=== PATIENT | female | born 1935 | race Caucasian/White ===

== ENCOUNTER 2022-05-22 10:54 | Outpatient (CLI) | payer MEDICARE, BC ==
[2022-05-22] VITALS (14 sets, daily range): BP systolic 92–131; BP diastolic 52–91; PULSE 80–101; TEMP 98.1
[~2022-05-22] VITALS: Ht 157.6 cm; Wt 70.0 kg
[2022-05-22] MEDS ORDERED: CARDIZEM CD 30300 MG PO (11:27)
[2022-05-22] MEDS ORDERED: ELIQUIS 5MG PO (11:28)
[2022-05-22] MEDS ORDERED: COZAAR 50MG50 MG/TAB PO (11:28)
[2022-05-22] MEDS ORDERED: LASIX 20MG TABL20 MG PO (11:30)
[2022-05-22] MEDS ORDERED: ZOCOR 10MG10 MG PO (11:31)
[2022-05-22] MEDS ORDERED: FERROUSAL325 MG PO (11:32)
[2022-05-22] MEDS ORDERED: PRILOSEC 20MG20 MG PO (11:32)
[2022-05-22] MEDS ORDERED: PRESERVISION1 SGL PO (11:32)
[2022-05-22 11:46] LABS: BASO # 0.1 K/mm3 (0.0-0.2); BASO % 1.2 % (0.0-2.0); EOS # 0.2 K/mm3 (0.0-0.7); EOS % 2.9 % (0.0-4.0); GRAN # 4.6 K/mm3 (1.4-6.5); GRAN % 65.6 % (42.2-75.2); HEMATOCRIT 42.9 % (37.0-47.0); HEMOGLOBIN 14.1 g/dl (12.5-16.0); LYMPH # 1.4 K/mm3 (1.2-3.4); LYMPH % 20.7 % (20.0-51.0); MEAN CELL VOLUME 93 fl (80.0-100.0); MEAN CORPUSCULAR HEMOGLOBIN 30 pg (27-31); MEAN CORPUSCULAR HGB CONC 33 g/dl (33.0-37.0); MEAN PLATELET VOLUME 10.6 fl (7.4-10.4); MONO # 0.7 K/mm3 (0.1-0.6); MONO % 9.5 % (1.7-9.3); PLATELET COUNT 185 K/mm3 (130-400); RED BLOOD COUNT 4.64 M/mm3 (4.10-5.30); REDCELL DISTRIBUTION WIDTH-CV 13.8 % (11.5-14.5)
[2022-05-22 11:50] LABS: INR 1.7 (0.8-3.0); PROTHROMBIN TIME 19.9 SECONDS (9.7-12.8)
[2022-05-22] MEDS ORDERED: VOLTAREN GEL 1%1 TU TP (12:16)
--- NOTE | 2022-05-22 13:20 | NUR ---
NAGI PERFORMED AT BEDSIDE IN EXPRESS UNIT. TIMELINE FOLLOWS: 1309 - TIMEOUT PERFORMED 1311 - NAGI PROBE IN. PATIENT BEGINS TO DESAT IN 70S WITH 30 SECONDS. NAGI PROBE REMOVED. CORRECTIVE THERAPIST PERFORMING JAW THRUST. O2 INCREASED VIA OXYMASK TO 15 LPM. 1315 - NAGI PROBE IN. PATIENT REPEATS FIRST NAGI ATTEMPT & DESATS QUICKLY INTO 60S. 1316 - NAGI PROBE REMOVED. PROCEDURE ABORTED. SUSPECT NARROW AIRWAY IS BEING OCCLUDED BY NAGI PROBE. PATIENT BREATHING WITHOUT DIFFICULTY. O2 CONTINUES AT 15 LPM VIA OXYMASK WITH SPO2 98%. 1317 - O2 DECREASED TO 5 LPM VIA OXYMASK WITH SPO2 97%. 1319 - O2 DECREASED TO 2 LPM VIA OXYMASK WITH SPO2 98%.
--- NOTE | 2022-05-22 15:30 | NUR ---
DC instructions reviewed with pt and family. All express understanding. Pt tolerating sips of water without issue. She is steady transfering from bed to wheelchair. INT DC'd, site wrapped with coban. She is assisted out to family's car by wheelchair with belongings.
== END 2022-05-22 15:26 | disposition home or self-care (01) ==
LOC: COL.RAD 10:54
PROVIDERS: Internal Medicine Adult Congenital Heart Disease
DX: I34.0 Nonrheumatic mitral (valve) insufficiency (principal); I48.91 Unspecified atrial fibrillation
CPT/HCPCS: J2370; J2704; J7120

== ENCOUNTER 2022-06-08 06:41 | Day surgery (SDC) | payer MEDICARE, BC ==
[~2022-06-08] VITALS: Ht 157.5 cm; Wt 69.9 kg
[2022-06-08] VITALS (158 sets, daily range): BP systolic 83–118; BP diastolic 54–85; PULSE 60–105; TEMP 98; O2SAT 87–97
[~2022-06-08 06:41] MED LIST: CARDIZEM CD 30300 MG PO; COZAAR 50MG50 MG/TAB PO; ELIQUIS 5MG PO; FERROUSAL325 MG PO; LASIX 20MG TABL20 MG PO; PRESERVISION1 SGL PO; PRILOSEC 20MG20 MG PO; VOLTAREN GEL 1%1 TU TP; ZOCOR 10MG10 MG PO
[2022-06-08 08:07] LABS: HEMATOCRIT 41.3 % (37.0-47.0); HEMOGLOBIN 13.8 g/dl (12.5-16.0); MEAN CELL VOLUME 92 fl (80.0-100.0); MEAN CORPUSCULAR HEMOGLOBIN 31 pg (27-31); MEAN CORPUSCULAR HGB CONC 33 g/dl (33.0-37.0); MEAN PLATELET VOLUME 10.9 fl (7.4-10.4); PLATELET COUNT 172 K/mm3 (130-400); RED BLOOD COUNT 4.49 M/mm3 (4.10-5.30); REDCELL DISTRIBUTION WIDTH-CV 13.5 % (11.5-14.5)
[2022-06-08 08:13] LABS: INR 1.1 (0.8-3.0)
[2022-06-08 08:16] LABS: PARTIAL THROMBOPLASTIN TIME 35.7 SECONDS (26.0-37.0)
[2022-06-08 08:24] LABS: CALCIUM 9.1 mg/dL (8.4-10.2); CREATININE, serum 0.7 mg/dL (0.57-1.11); POTASSIUM 4.1 mmol/L (3.5-4.5)
[2022-06-08] MEDS ORDERED: LASIX 20MG TABL20 MG PO (08:55)
[2022-06-08] MEDS ORDERED: ELIQUIS 5MG PO (08:55)
[2022-06-08] MEDS ORDERED: ZOCOR 10MG10 MG PO (08:56)
[2022-06-08] MEDS ORDERED: COZAAR 50MG50 MG/TAB PO (08:56)
[2022-06-08] MEDS ORDERED: TIAZAC300 MG PO (08:57)
[2022-06-08] MEDS ORDERED: LOVENOX 8080 MG/0.8 SQ (09:18)
--- NOTE | 2022-06-08 09:21 | NUR ---
Pt to procedure,report to EDER Amaro.
--- NOTE | 2022-06-08 09:29 | NUR ---
SEE MERGE FOR ALL MEDICATION ADMINISTRATION TIMES, INTRA AND POST SEDATION ASSESSMENTS
--- NOTE | 2022-06-08 14:07 | NUR ---
Discharge instructions given to pt.Pt verbalizes understanding.Pt escorted out via wheelchair by this nurse.
== END 2022-06-08 15:21 ==
LOC: COL.CAR 06:41
PROVIDERS: Internal Medicine Cardiovascular Disease
DX: I25.10 Atherosclerotic heart disease of native coronary artery without angina pectoris (principal); I27.20 Pulmonary hypertension, unspecified; Z87.891 Personal history of nicotine dependence
CPT/HCPCS: C1769; C1894; J1200; J1644; J2250; J2930; J3010